=== PATIENT | female | born 1990 | race Two or more races ===

== ENCOUNTER 2017-03-26 22:08 | Observation (INO) | payer BC ==
[2017-03-26] MEDS ORDERED: Ketorolac 30 MG/ML SDV IM ONE (22:53)
--- NOTE | 2017-03-26 22:54 | EDM.PDOC ---
ED HPI GENERAL MEDICAL PROBLEM - General Chief Complaint: Abdominal Pain Stated Complaint: PELVIC PAIN Time Seen by Provider: 03/26/17 22:24 - History of Present Illness INITIAL COMMENTS - FREE TEXT/NARRATIVE: HISTORY AND PHYSICAL: History of present illness: Patient's age 26-year-old female who presents with concern of pelvic pain she has had this in the past intermittently but not quite as severe she has had an ultrasound was recently put on oral contraceptives for possible endometriosis. She denies fever chills nausea vomiting vaginal discharge denies history of STDs denies trauma she has had an ovarian cyst in the past. Review of systems: As per history of present illness and below otherwise all systems reviewed and negative. Past medical history: As per history of present illness and as reviewed below otherwise noncontributory. Surgical history: As per history of present illness and as reviewed below otherwise noncontributory. Social history: No reported history of drug or alcohol abuse. Family history: As per history of present illness and as reviewed below otherwise noncontributory. Physical exam: HEENT: Atraumatic, normocephalic, pupils reactive, negative for conjunctival pallor or scleral icterus, mucous membranes moist, throat clear, neck supple, nontender, trachea midline. Lungs: Clear to auscultation, breath sounds equal bilaterally, chest nontender. Heart: S1S2, regular, negative for clicks, rubs, or JVD. Abdomen: Soft, nondistended, mild lower abdominal pain nonlocalized no rebound no guarding Negative for masses or hepatosplenomegaly. Negative for costovertebral tenderness. Pelvis: Stable nontender. Genitourinary: Deferred. Rectal: Deferred. Extremities: Atraumatic, negative for cords or calf pain. Neurovascular unremarkable. Neuro: Awake, alert, oriented. Cranial nerves II through XII unremarkable. Cerebellum unremarkable. Motor and sensory unremarkable throughout. Exam nonfocal. Diagnostics: CBC CMP UA hCG pelvic ultrasound Therapeutics: Toradol 60 mg IM Impression: #1 intermittent pelvic pain etiology be determined Definitive disposition and diagnosis as appropriate pending reevaluation and review of above. hypogastric Pain Score (Numeric/FACES): 8 - Related Data Allergies Allergy/AdvReac Type Severity Reaction Status Date / Time Penicillins Allergy Rash Verified 03/27/17 03:08 Home Meds: Home Meds Control 03/26/17 [History] Past Medical History - Past Health History Medical/Surgical History: Denies Medical/Surgical History FACILITIES DIRECTOR History: Reports: Social & Family History - Family History Family Medical History: Noncontributory - Tobacco Use Smoking Status *Q: Never Smoker - Recreational Drug Use Recreational Drug Use: No ED ROS GENERAL - Review of Systems Review Of Systems: ROS reveals no pertinent complaints other than HPI. ED EXAM, GENERAL - Physical Exam Exam: See Below (See dictation) Course - Vital Signs Last Recorded V/S: Last Vital Signs Temp 36.3 C 03/27/17 03:57 Pulse 73 03/27/17 03:57 Resp 16 03/27/17 03:57 BP 101/64 03/27/17 03:57 Pulse Ox 99 03/27/17 03:57 - Orders/Labs/Meds Orders: Active Orders 24 hr Category Date Time Status Pelvis Non OB Ltd [US] Routine Exams 03/26/17 23:30 Taken Medication Orders Ibuprofen (Motrin) 800 mg PO Q8H EZEQUIEL Ondansetron HCl (Zofran Odt) 4 mg PO Q4H PRN PRN Reason: Nausea/Vomiting Oxycodone HCl (Oxycodone) 5 mg PO Q4H PRN PRN Reason: Pain Last Admin: 03/27/17 05:56 Dose: 5 mg Sodium Chloride (Saline Flush) 2.5 ml FLUSH ASDIRECTED PRN PRN Reason: Keep Vein Open Labs: Laboratory Tests 03/26/17 03/26/17 03/26/17 Range/Units 22:30 22:30 22:30 WBC 10.25 (4.0-11.0) K/uL RBC 4.03 L (4.30-5.90) M/uL Hgb 12.0 (12.0-16.0) g/dL Hct 35.7 L (36.0-46.0) % MCV 88.6 (80.0-98.0) fL MCH 29.8 (27.0-32.0) pg MCHC 33.6 (31.0-37.0) g/dL RDW Std Deviation 40.5 (28.0-62.0) fl RDW Coeff of Christian 13 (11.0-15.0) % Plt Count 226 (150-400) K/uL MPV 11.10 (7.40-12.00) fL Neut % (Auto) 38.0 L (48.0-80.0) % Lymph % (Auto) 49.0 H (16.0-40.0) % Green % (Auto) 8.2 (0.0-15.0) % Eos % (Auto) 3.8 (0.0-7.0) % Baso % (Auto) 1.0 (0.0-1.5) % Neut # (Auto) 3.9 (1.4-5.7) K/uL Lymph # (Auto) 5.0 H (0.6-2.4) K/uL Green # (Auto) 0.8 (0.0-0.8) K/uL Eos # (Auto) 0.4 (0.0-0.7) K/uL Baso # (Auto) 0.1 (0.0-0.1) K/uL Nucleated RBC % 0.0 /100WBC Nucleated RBCs # 0 K/uL Sodium (136-146) mmol/L Potassium (3.5-5.1) mmol/L Chloride (98-110) mmol/L Carbon Dioxide (21-31) mmol/L BUN (6.0-23.0) mg/dL Creatinine (0.6-1.5) mg/dL Est Cr Clr Drug Dosing mL/min Estimated GFR (MDRD) ml/min Glucose (60-110) mg/dL Calcium (8.8-10.8) mg/dL Total Bilirubin (0.1-1.5) mg/dL AST (5-40) IU/L ALT (8-54) IU/L Alkaline Phosphatase (40-150) Total Protein (6.0-8.0) g/dL Albumin (3.5-5.0) g/dL Globulin (2.0-3.5) g/dL Albumin/Globulin Ratio (1.3-2.8) Urine Color YELLOW Urine Appearance CLEAR Urine pH 6.0 (5.0-8.0) Ur Specific [place] <= 1.005 (1.001-1.035) Urine Protein NEGATIVE (NEGATIVE) mg/dL Urine Glucose (UA) NEGATIVE (NEGATIVE) mg/dL Urine Ketones NEGATIVE (NEGATIVE) mg/dL Urine Occult Blood NEGATIVE (NEGATIVE) Urine Nitrite NEGATIVE (NEGATIVE) Urine Bilirubin NEGATIVE (NEGATIVE) Urine Urobilinogen 0.2 (<2.0) EU/dL Ur Leukocyte Esterase NEGATIVE (NEGATIVE) Urine RBC 0-1 (0-2/HPF) Urine WBC 0-1 (0-5/HPF) Ur Epithelial Cells RARE (NONE-FEW) Urine Bacteria RARE (NEGATIVE) Urine HCG, Qual NEGATIVE (NEGATIVE) 03/26/17 Range/Units 22:30 WBC (4.0-11.0) K/uL RBC (4.30-5.90) M/uL Hgb (12.0-16.0) g/dL Hct (36.0-46.0) % MCV (80.0-98.0) fL MCH (27.0-32.0) pg MCHC (31.0-37.0) g/dL RDW Std Deviation (28.0-62.0) fl RDW Coeff of Christian (11.0-15.0) % Plt Count (150-400) K/uL MPV (7.40-12.00) fL Neut % (Auto) (48.0-80.0) % Lymph % (Auto) (16.0-40.0) % Green % (Auto) (0.0-15.0) % Eos % (Auto) (0.0-7.0) % Baso % (Auto) (0.0-1.5) % Neut # (Auto) (1.4-5.7) K/uL Lymph # (Auto) (0.6-2.4) K/uL Green # (Auto) (0.0-0.8) K/uL Eos # (Auto) (0.0-0.7) K/uL Baso # (Auto) (0.0-0.1) K/uL Nucleated RBC % /100WBC Nucleated RBCs # K/uL Sodium 137 (136-146) mmol/L Potassium 4.1 (3.5-5.1) mmol/L Chloride 110 (98-110) mmol/L Carbon Dioxide 18 L (21-31) mmol/L BUN 13 (6.0-23.0) mg/dL Creatinine 0.6 (0.6-1.5) mg/dL Est Cr Clr Drug Dosing 115.47 mL/min Estimated GFR (MDRD) > 60.0 ml/min Glucose 97 (60-110) mg/dL Calcium 8.8 (8.8-10.8) mg/dL Total Bilirubin 0.2 (0.1-1.5) mg/dL AST 14 (5-40) IU/L ALT 14 (8-54) IU/L Alkaline Phosphatase 41 (40-150) Total Protein 6.8 (6.0-8.0) g/dL Albumin 3.9 (3.5-5.0) g/dL Globulin 2.9 (2.0-3.5) g/dL Albumin/Globulin Ratio 1.3 (1.3-2.8) Urine Color Urine Appearance Urine pH (5.0-8.0) Ur Specific Ter[place] (1.001-1.035) Urine Protein (NEGATIVE) mg/dL Urine Glucose (UA) (NEGATIVE) mg/dL Urine Ketones (NEGATIVE) mg/dL Urine Occult Blood (NEGATIVE) Urine Nitrite (NEGATIVE) Urine Bilirubin (NEGATIVE) Urine Urobilinogen (<2.0) EU/dL Ur Leukocyte Esterase (NEGATIVE) Urine RBC (0-2/HPF) Urine WBC (0-5/HPF) Ur Epithelial Cells (NONE-FEW) Urine Bacteria (NEGATIVE) Urine HCG, Qual (NEGATIVE) Meds: Medications Generic Name Dose Route Start Last Admin Trade Name Freq PRN Reason Stop Dose Admin Ibuprofen 800 mg 03/27/17 10:00 Motrin PO Q8H EZEQUIEL Ondansetron HCl 4 mg 03/27/17 01:57 Zofran Odt PO Q4H PRN Nausea/Vomiting Oxycodone HCl 5 mg 03/27/17 03:41 03/27/17 05:56 Oxycodone PO 5 mg Q4H PRN Administration Pain Sodium Chloride 2.5 ml 03/27/17 04:00 Saline Flush FLUSH ASDIRECTED PRN Keep Vein Open Discontinued Medications Generic Name Dose Route Start Last Admin Trade Name Freq PRN Reason Stop Dose Admin Hydromorphone HCl 0.5 mg 03/27/17 00:34 03/27/17 01:07 Dilaudid IVPUSH 03/27/17 00:35 Not Given ONETIME ONE Hydromorphone HCl 0.5 mg 03/27/17 00:56 03/27/17 00:58 Dilaudid IV 03/27/17 00:57 0.5 mg ONETIME ONE Administration Hydromorphone HCl Confirm 03/27/17 00:54 03/27/17 01:07 Dilaudid Administered 03/27/17 00:55 Not Given Dose 1 mg .ROUTE .STK-MED ONE Sodium Chloride 1,000 mls @ 999 mls/hr 03/27/17 00:34 03/27/17 00:59 Normal Saline IV 03/27/17 01:34 999 mls/hr STAT ONE Administration Ibuprofen 800 mg 03/27/17 01:56 03/27/17 02:13 Motrin PO 800 mg Q8H PRN Administration Pain Ketorolac Tromethamine 30 mg 03/26/17 22:53 03/26/17 23:05 Toradol IM 03/26/17 22:54 30 mg ONETIME ONE Administration Methylprednisolone Sodium Succinate 125 mg 03/26/17 23:39 03/27/17 01:01 Solu-Medrol IVPUSH 03/26/17 23:40 Not Given ONETIME ONE Oxycodone/Acetaminophen 2 tab 03/27/17 03:29 03/27/17 03:37 Percocet 325-5 Mg PO 03/27/17 03:30 2 tab ONETIME STA Administration Departure - Departure Time of Disposition: 06:21 Disposition: Refer to Observation Condition: Good Clinical Impression: Abdominal pain - Discharge Information - My Orders Last 24 Hours: My Active Orders 03/26/17 23:30 Pelvis Non OB Ltd [US] Routine - Assessment/Plan Last 24 Hours: My Active Orders 03/26/17 23:30 Pelvis Non OB Ltd [US] Routine
[2017-03-26 23:00] LABS: CHLORIDE,CL 110 mmol/L (98-110); SODIUM,NA 137 mmol/L (136-146)
[2017-03-26] MEDS ORDERED: methylPREDNISolone Sodium Succinate 125 MG/2 ML SDV IVPUSH ONE (23:39)
[2017-03-27] MEDS ORDERED: Sodium Chloride 0.9% 1,000 ML IV ONE (00:34)
[2017-03-27] MEDS ORDERED: HYDROmorphone 2 MG/ML Syringe IVPUSH ONE (00:34)
[2017-03-27] MEDS ORDERED: HYDROmorphone 1 MG/ML Syringe ONE (00:54)
[2017-03-27] MEDS ORDERED: HYDROmorphone 1 MG/ML Syringe IV ONE (00:56)
[2017-03-27] MEDS ORDERED: Ibuprofen 800 MG Tab PO PRN (01:56)
[2017-03-27] MEDS ORDERED: Ondansetron 4 MG Tab.DIS PO PRN (01:57)
[2017-03-27] MEDS ORDERED: Acetaminophen/oxyCODONE 325-5 MG Tab PO STA (03:29)
[2017-03-27] MEDS ORDERED: Sodium Chloride 0.9% 2.5 ML Syringe FLUSH PRN (04:00)
[2017-03-27] MEDS: oxyCODONE 5 MG Tab PO PRN ×2 (05:56→10:44)
[2017-03-27] MEDS ORDERED: Ibuprofen 800 MG Tab PO SCH (10:00)
--- NOTE | 2017-03-27 16:53 | HP ---
DATE OF : 1990 PRIMARY CARE PHYSICIAN: None PCP HISTORY: The patient is a 26-year-old Para 4, who was admitted via the ER yesterday for worsening lower abdominal pain. This patient had been seen in the office for an routine annual exam 5 days ago and had reported at the visit to her provider that she has had constant pelvic pain virtually everyday for the last 6 months which has increasingly worsened especially with her periods and with sex. She reports that the reason why she presented to the ER yesterday was because the pain within no known aggravating factor suddenly increased in intensity days prior and with no much relief despite her taking OTC pain medication. She describes the pain as a constant sharp located mainly suprapubic and radiating to her back. No vaginal bleeding or abnormal vaginal discharge. She denied associated nausea or vomiting. No urinary symptoms and denied constipation. In the office,on 03/22, she had a pelvic ultrasound, which showed a 2.4 left- sided hemorrhagic cyst, and she was also started on empirical treatment with extended cycle OCP for possible endometriosis diagnosis based on her symptoms. She is , with four children, all normal vaginal delivery, and had a laparoscopic bilateral tubal ligation in June of last year at [place].The patient had received IV Toradol and Dilaudid in the ER. GYNECOLOGICAL HISTORY: Irregular cycles, last menstrual period was on the 19 of February. Denies history STDs. PAST OBSTETRIC HISTORY: Four normal vaginal deliveries. REVIEW OF SYSTEMS: As above. PAST MEDICAL HISTORY: History of depression. SURGICAL HISTORY: Laparoscopic bilateral tubal ligation in 2016, Appendectomy in 2013, Cholecystectomy in 2013. SOCIAL HISTORY: Nonsmoker, denies use of recreational drugs or street drugs. 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 FAMILY HISTORY: Mother with diabetes and hypercholesteremia. Father is and has three healthy sisters and one brother. MEDICATIONS: Oral contraceptive. ALLERGIES: Penicillin. PHYSICAL EXAMINATION: GENERAL: Apart from a low affect, she looked comfortable, lying on bed. She was maintaining good eye contact and was alert and oriented. VITAL SIGNS: Temperature 36.5, RI: 78, BP 95/63, Oxygen saturation of 100% on room air with a respiratory rate of 18. CHEST: Clear to auscultation bilaterally. CARDIOVASCULAR: Heart sounds 1 and 2. No murmurs. ABDOMEN: Soft. Generalized tenderness on the lower abdominal region, mainly suprapubic with voluntary guarding, but no rebound tenderness. No renal angle tenderness elicited. EXTREMITIES: No edema. VAGINAL EXAMINATION: Normal external genitalia with no lesions or discoloration noted. Scanty amount of cheesy/creamy discharge on speculum with normal appearing cervix On bimanual examination there was generalized tenderness in both adnexae. No cervical motion tenderness.Uterus is normal size, mobile, anteverted, mildly tender. An Affirm swab was collected LABORATORY DATA: All her labs performed in the ER last night, CBC, CMP, amylase, and lipase were all normal. Urinalysis was negative with a negative urine HCG. She had a pelvic ultrasound, which showed normal uterus, endometrium and normal ovaries bilaterally, no adnexal masses with no significant free fluid in the cul-de-sac. The right ovary which could only be visualized transabdominally, was documented as not have enough vacular flow within it. I reviewed the images on the PACS system, and the area of the previously seen 2.4 cm hemorrhagic cyst five days ago looked like a collapsing or involving follicle. There was a trace amount of free fluid in the cul-de-sac, but otherwise, it was a normal pelvic ultrasound. ASSESSMENT AND PLAN: A 26-year-old patient with chronic lower abdominal/pelvic pain, The pain is not any different from her prior symptom but had worsened over the last 2 days. At this stage, the etiology of symptom is unknown and I have reviewed the possible diagnosis with her.I agree that it could very well be endometriosis as suspected or a ruptured ovarian cyst causing her recent exacerbation. I have explained to the patient that she will need to have a discussion on further management options/ evaluation with Dr Ohara, and this can be done in the Clinic. I reviewed her pelvic sonogram findings with her and explained that based on her symptoms and clinical findings, am not convinced that she has an unprovoked ovarian torsion. I will discharge with pain medications and have her brought back to the clinic for follow up. The patient verbalized understanding and accepted the plan. YANG / MILKA /[id number] PREM
--- NOTE | 2017-03-28 18:06 | US ---
EXAM DATE: 03/27/17 PATIENT'S AGE: 26 Patient: ALEYDA RIVAS Facility: [place], [place] Site . Site : 1990 Study: US Pelvis [id number] 11:33:03 PM Ordering Physician: Kehinde Neal Final Report: INDICATION: Pelvic pain TECHNIQUE: Ultrasound pelvis transabdominal and transvaginal. Endovaginal imaging was performed to better visualize the endometrium and ovaries. Real- time horton scale sonographic images with spectral and color Doppler imaging of the ovaries were obtained. COMPARISON: None FINDINGS: Uterus: 8 x 5 x 6.2 cm. Normal echotexture of the myometrium noted with no masses are seen. Endometrium: 16 mm. No sign of endometrial mass or fluid present. Right ovary: 2 x 1.7 x 2.2 cm. Color doppler flow not well demonstrated within the right ovary. Left ovary: 2.6 x 2.4 x 2.6 cm. Normal arterial and venous blood flow seen in the left ovary. Cul-de-sac: No significant ascites noted. IMPRESSION: 1. Color Doppler flow not well demonstrated within the right ovary. Ovarian torsion cannot be excluded and clinical correlation and followup is recommended. A copy of this report was faxed to Dr. Busby at approximately 11:45 PM. Dictated by William Lo MD @ 03/26/2017 11:45:32 PM Dictated by: William Lo MD @ 03/26/2017 23:45:43 (Electronic Signature) Report Signed by Proxy. PREM
== END 2017-03-27 11:35 | disposition home or self-care (01) ==
LOC: MW.ED 22:08 → MW.MS 03-27 00:34
PROVIDERS: ADMIT Obstetrics & Gynecology; ATTEND Obstetrics & Gynecology
DX: R10.30 Lower abdominal pain, unspecified (principal); Z90.49 Acquired absence of other specified parts of digestive tract; Z88.0 Allergy status to penicillin; Z98.51 Tubal ligation status
CPT/HCPCS: 76857; 80053; 81001; 81025; 85025; 87480; 87510; 87660; 96361; 96372; 96374; 99285; A9270; G0378; J1170; J1885; J7040; 99284

== ENCOUNTER 2017-04-18 09:09 | Day surgery (SDC) | payer BC ==
[~2017-04-18 09:09] MED LIST: Bupivacaine 0.25% 10 ML SDV ONE; Lactated Ringers 1,000 ML IV SCH; Sodium Chloride 0.9% 10 ML Syringe FLUSH PRN; Sodium Chloride 0.9% 2.5 ML Syringe FLUSH PRN
--- NOTE | 2017-04-18 10:16 | PCM.PREANE ---
Preanesthetic Assessment - Anesthesia/Transfusion/Family Hx Anesthesia History: Prior Anesthesia Without Reaction Family History of Anesthesia Reaction: No Transfusion History: No Prior Transfusion(s) - Review of Systems General: No Symptoms Pulmonary: No Symptoms Cardiovascular: No Symptoms Gastrointestinal: No Symptoms Neurological: No Symptoms Other: Reports: None - Physical Assessment NPO Status Date: 04/17/17 NPO Status Time: 20:30 O2 Sat by Pulse Oximetry: 100 Respiratory Rate: 14 Vital Signs: Last Vital Signs Temp 36.7 C 04/18/17 10:07 Pulse 79 04/18/17 10:07 Resp 14 04/18/17 10:07 BP 117/77 04/18/17 10:07 Pulse Ox 100 04/18/17 10:07 Height: 1.59 m Weight: 70.76 kg ASA Class: 1 ROM/Head Extension: Full Lungs: Clear to Auscultation, Normal Respiratory Effort Cardiovascular: Regular Rate, Regular Rhythm - Lab Values: Laboratory Last Values WBC 7.29 K/uL (4.0-11.0) 04/18/17 09:50 RBC 4.36 M/uL (4.30-5.90) 04/18/17 09:50 Hgb 12.8 g/dL (12.0-16.0) 04/18/17 09:50 Hct 38.9 % (36.0-46.0) 04/18/17 09:50 MCV 89.2 fL (80.0-98.0) 04/18/17 09:50 MCH 29.4 pg (27.0-32.0) 04/18/17 09:50 MCHC 32.9 g/dL (31.0-37.0) 04/18/17 09:50 RDW Std Deviation 40.0 fl (28.0-62.0) 04/18/17 09:50 RDW Coeff of Christian 13 % (11.0-15.0) 04/18/17 09:50 Plt Count 227 K/uL (150-400) 04/18/17 09:50 MPV 11.60 fL (7.40-12.00) 04/18/17 09:50 Nucleated RBC % 0.0 /100WBC 04/18/17 09:50 Nucleated RBCs # 0 K/uL 04/18/17 09:50 - Allergies Allergies/Adverse Reactions: Allergies Allergy/AdvReac Type Severity Reaction Status Date / Time Penicillins Allergy Rash Verified 04/14/17 07:54 - Anesthesia Plan Pre-Op Medication Ordered: None - Acknowledgements Anesthesia Type Planned: General Anesthesia Pt an Appropriate Candidate for the Planned Anesthesia: Yes Alternatives and Risks of Anesthesia Discussed w Pt/Guardian: Yes Pt/Guardian Understands and Agrees with Anesthesia Plan: Yes PreAnesthesia Questionnaire - Past Health History Medical/Surgical History: Denies Medical/Surgical History HEENT History: Reports: None Gastrointestinal History: Reports: Other (See Below) Other Gastrointestinal History: occasional heartburn Genitourinary History: Reports: None BIRD KEEPER History: Reports: Musculoskeletal History: Reports: Fracture, Other (See Below) Neurological History: Reports: None Psychiatric History: Reports: None Endocrine/Metabolic History: Reports: None Hematologic History: Reports: None Immunologic History: Reports: None Oncologic (Cancer) History: Reports: None Dermatologic History: Reports: None - Infectious Disease History Infectious Disease History: Reports: Chicken Pox - Past Surgical History Head Surgeries/Procedures: Reports: None HEENT Surgical History: Reports: Oral Surgery GI Surgical History: Reports: Appendectomy, Cholecystectomy Female Surgical History: Reports: Tubal Ligation Musculoskeletal Surgical History: Reports: Other (See Below) Other Musculoskeletal Surgeries/Procedures:: clavicle fracture - SUBSTANCE USE Smoking Status *Q: Former Smoker Tobacco Use Within Last Twelve Months:  Second Hand Smoke Exposure: No Recreational Drug Use History: No - HOME MEDS Home Medications: Home Meds l-Norgest/E.estradion-E.estrad [Seasonique 0.15-0.03-0.01] 1 tab PO ASDIRECTED 04/14/17 [History] - CURRENT (IN HOUSE) MEDS Current Meds: Current Medications Lactated Ringer's (Ringers, Lactated) 1,000 mls @ 125 mls/hr IV ASDIRECTED [facility] Last Admin: 04/18/17 10:07 Dose: 125 mls/hr Sodium Chloride (Saline Flush) 10 ml FLUSH ASDIRECTED PRN PRN Reason: Keep Vein Open Sodium Chloride (Saline Flush) 2.5 ml FLUSH ASDIRECTED PRN PRN Reason: Keep Vein Open Discontinued Medications Bupivacaine HCl (Sensorcaine-Mpf 0.25%) Confirm Administered Dose 30 ml .ROUTE .STK-MED ONE Stop: 04/18/17 07:33
[2017-04-18] MEDS ORDERED: Lidocaine 2% 5 ML SDV ONE (10:33)
[2017-04-18] MEDS ORDERED: fentaNYL 250 MCG/5 ML SDV ONE (10:34)
[2017-04-18] MEDS ORDERED: Propofol 200 MG/20 ML SDV ONE (10:34)
[2017-04-18] MEDS ORDERED: Midazolam 1 MG/ML 2 ML SDV ONE (10:34)
[2017-04-18] MEDS ORDERED: Ondansetron 4 MG/2 ML SDV ONE (10:38)
[2017-04-18] MEDS ORDERED: Ketorolac 30 MG/ML SDV ONE (10:38)
[2017-04-18] MEDS ORDERED: Rocuronium 10 MG/ML 10 ML Syringe ONE (10:41)
[2017-04-18] MEDS ORDERED: Glycopyrrolate 0.2 MG/ML SDV ONE (10:41)
[2017-04-18] MEDS ORDERED: Neostigmine Methylsulfate 1 MG/ML 5 ML Syringe ONE (10:41)
[2017-04-18] MEDS ORDERED: Acetaminophen/HYDROcodone 325-5 MG Tab PO PRN (13:08)
[2017-04-18] MEDS: fentaNYL 100 MCG/2 ML SDV IVPUSH PRN ×2 (13:19→13:28)
--- NOTE | 2017-04-18 13:40 | PCM.POSTAN ---
POST ANESTHESIA ASSESSMENT - MENTAL STATUS Mental Status: Alert, Oriented - RESPIRATORY Respiratory Status: Respiratory Rate WNL, Airway Patent, O2 Saturation Stable - CARDIOVASCULAR CV Status: Pulse Rate WNL, Blood Pressure Stable - GASTROINTESTINAL GI Status: No Symptoms - POST OP HYDRATION Hydration Status: Adequate & Stable
--- NOTE | 2017-04-18 14:14 | PCM48HPAN ---
Post Anesthesia Note - EVALUATION WITHIN 48HRS OF ANESTHETIC Vital Signs in Normal Range: Yes Patient Participated in Evaluation: Yes Respiratory Function Stable: Yes Airway Patent: Yes Cardiovascular Function Stable: Yes Hydration Status Stable: Yes Pain Control Satisfactory: Yes Nausea and Vomiting Control Satisfactory: Yes Mental Status Recovered: Yes Resp Rate: 14 - COMMENTS/OBSERVATIONS Free Text/Narrative:: No apparent anesthesia complications.
--- NOTE | 2017-04-19 10:29 | OR ---
SURGEON: STEPHANIE WOLF DATE OF PROCEDURE: 04/18/2017 PROCEDURE:Diagnostic laparoscopy. PREOPERATIVE DIAGNOSIS: 26yo P4 with chronic pelvic pain. POSTOPERATIVE DIAGNOSIS: Chronic pelvic pain, IV FLUID: 1100. ESTIMATED BLOOD LOSS: 5 mL. URINE OUTPUT: Minimal. COMPLICATIONS: None. FINDINGS: EUA:Normal sized anteverted uterus. Laparoscopy showed :Normal uterus, ovaries, and tubes No abnormalities identified. BRIEF HISTORY ABOUT THE PATIENT: She is a 26-year-old, para 4, who had a bilateral tubal ligation done last year. She was complaining of irregular periods once every 2 months. She also had pelvic pain, which she was having every day. She had an ultrasound done, which was normal. CT scan was done and was also normal. The patient denied any urinary or bowel symptoms. .The patient was placed on OCP, but pain was not resolved. As a result, the patient was consented for diagnostic laparoscopy. DESCRIPTION OF PROCEDURE: The patient was taken to the operating room where general anesthesia was performed without difficulty. The patient was placed in dorsal lithotomy position with Emanuel stirrups. The patient was prepared and draped in the usual sterile fashion. Attention was then paid to the vagina, where a bivalve speculum was placed to expose the cervix. An Allis clamp was used to grasp the anterior lip of the cervix. The uterine manipulator was then inserted into the cervix. Then, attention was paid to the abdomen. A supraumbilical incision was made, after Marcaine was injected in the subumbilical fold. With direct entry, the trocar was placed in with the laparoscope, and entry was confirmed by low pressure. The pneumoperitoneum was then inflated to 15 mmHg. Then, attention was paid to the left lower quadrant. An incision was then made also in the left lower quadrant two fingerbreath medial and above the anterior superior iliac spine. The scalpel was used to make a skin incision. The trocar was then placed in. Sequentially, the anterior cul-de-sac was inspected, followed by the right and left round ligaments were inspected all the way to the pelvic side wall. On the right and left round ligaments, no lesion was found. The right and left ovary were inspected. The ovarian fossa was also inspected. In the posterior cul-de-sac, no lesion was found. The liver appeared normal and adhesions were very minimal. As a result of this, the procedure was ended. The gas was released out of the abdomen through the trocars. The trocars were removed. All instrument and pad counts were correct x2. The incision was closed with 4-0 Monocryl and Steri-Strip was placed with a bandage. Then, the uterine manipulator was also removed. The patient tolerated the procedure well and was taken to the recovery room in stable condition. DIANE JARQUIN /[id number] MTDD
== END 2017-04-18 14:45 | disposition home or self-care (01) ==
LOC: MW.SDS 09:09
PROVIDERS: ATTEND Obstetrics & Gynecology
DX: R10.2 Pelvic and perineal pain (principal); G89.29 Other chronic pain; Z98.51 Tubal ligation status; Z87.891 Personal history of nicotine dependence; Z88.0 Allergy status to penicillin
CPT/HCPCS: 36415; 49320; 84703; 85027; 86850; 86900; 86901; A9270; J1885; J2250; J2405; J3010; J7120; 00840; J2704

== ENCOUNTER 2017-04-22 17:15 | Emergency (ER) | payer BC ==
[2017-04-22] MEDS ORDERED: Sodium Chloride 0.9% 1,000 ML IV ONE (17:56)
--- NOTE | 2017-04-22 17:59 | EDM.PDOC ---
ED HPI GENERAL MEDICAL PROBLEM - General Chief Complaint: COURT OPERATIONS CLERK Problem Stated Complaint: CHEST PAIN Time Seen by Provider: 04/22/17 17:53 - History of Present Illness INITIAL COMMENTS - FREE TEXT/NARRATIVE: HISTORY AND PHYSICAL: History of present illness: Patient is 26-year-old female was approximately 1 week status post laparoscopy which was exploratory for possible endometriosis who presents now with concern of vaginal bleeding and passage of some tissue. Patient also has concern of chest pain is vaguely described without associated shortness of breath nausea vomiting fever chills Review of systems: As per history of present illness and below otherwise all systems reviewed and negative. Past medical history: As per history of present illness and as reviewed below otherwise noncontributory. Surgical history: As per history of present illness and as reviewed below otherwise noncontributory. Social history: No reported history of drug or alcohol abuse. Family history: As per history of present illness and as reviewed below otherwise noncontributory. Physical exam: HEENT: Atraumatic, normocephalic, pupils reactive, negative for conjunctival pallor or scleral icterus, mucous membranes moist, throat clear, neck supple, nontender, trachea midline. Lungs: Clear to auscultation, breath sounds equal bilaterally, chest nontender. Heart: S1S2, regular, negative for clicks, rubs, or JVD. Abdomen: Soft, nondistended, no localized tenderness. Negative for masses or hepatosplenomegaly. Negative for costovertebral tenderness. Pelvis: Stable nontender. Genitourinary: Deferred. Rectal: Deferred. Extremities: Atraumatic, negative for cords or calf pain. Neurovascular unremarkable. Neuro: Awake, alert, oriented. Cranial nerves II through XII unremarkable. Cerebellum unremarkable. Motor and sensory unremarkable throughout. Exam nonfocal. Diagnostics: CBC CMP PT/INR troponin d-dimer pelvic ultrasound chest x-ray EKG Therapeutics: Saline 1 L bolus Impression: #1 vaginal bleeding #2 observation 1 week status post laparoscopy #3 chest pain Definitive disposition and diagnosis as appropriate pending reevaluation and review of above. 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: Musculoskeletal History: Reports: Fracture, Other (See Below) Neurological History: Reports: None Psychiatric History: Reports: None Endocrine/Metabolic History: Reports: None Hematologic History: Reports: None Immunologic History: Reports: None Oncologic (Cancer) History: Reports: None Dermatologic History: Reports: None - Infectious Disease History Infectious Disease History: Reports: Chicken Pox - Past Surgical History Head Surgeries/Procedures: Reports: None HEENT Surgical History: Reports: Oral Surgery GI Surgical History: Reports: Appendectomy, Cholecystectomy Female Surgical History: Reports: Tubal Ligation Musculoskeletal Surgical History: Reports: Other (See Below) Other Musculoskeletal Surgeries/Procedures:: clavicle fracture Social & Family History - Family History Family Medical History: Noncontributory - Tobacco Use Smoking Status *Q: Former Smoker Years of Tobacco use: 9 Used Tobacco, but Quit: Yes Month/Year Tobacco Last Used: 02/2016 Second Hand Smoke Exposure: No - Caffeine Use Caffeine Use: Reports: None - Recreational Drug Use Recreational Drug Use: No ED ROS GENERAL - Review of Systems Review Of Systems: ROS reveals no pertinent complaints other than HPI. ED EXAM, GENERAL - Physical Exam Exam: See Below (See dictation) Course - Vital Signs Last Recorded V/S: Last Vital Signs Temp 36.6 C 04/22/17 18:07 Pulse 102 H 04/22/17 18:07 Resp 18 04/22/17 18:07 BP 144/98 H 04/22/17 18:07 Pulse Ox 99 04/22/17 18:07 - Orders/Labs/Meds Orders: Active Orders 24 hr Category Date Time Status EKG Documentation Completion [RC] STAT Care 04/22/17 18:00 Active Chest 1V Frontal [CR] Stat Exams 04/22/17 17:54 Taken Pelvis Non OB Comp [US] Stat Exams 04/22/17 17:59 Taken Sodium Chloride 0.9% [Normal Saline] 1,000 ml Med 04/22/17 17:56 Active IV STAT Medication Orders Sodium Chloride (Normal Saline) 1,000 mls @ 999 mls/hr IV STAT ONE Stop: 04/22/17 18:56 Last Admin: 04/22/17 18:11 Dose: 999 mls/hr Labs: Laboratory Tests 04/22/17 04/22/17 04/22/17 Range/Units 18:03 18:03 18:03 WBC 11.86 H (4.0-11.0) K/uL RBC 4.59 (4.30-5.90) M/uL Hgb 13.6 (12.0-16.0) g/dL Hct 40.7 (36.0-46.0) % MCV 88.7 (80.0-98.0) fL MCH 29.6 (27.0-32.0) pg MCHC 33.4 (31.0-37.0) g/dL RDW Std Deviation 39.8 (28.0-62.0) fl RDW Coeff of Christian 12 (11.0-15.0) % Plt Count 276 (150-400) K/uL MPV 11.00 (7.40-12.00) fL Neut % (Auto) 62.8 (48.0-80.0) % Lymph % (Auto) 27.7 (16.0-40.0) % Harney % (Auto) 6.5 (0.0-15.0) % Eos % (Auto) 2.4 (0.0-7.0) % Baso % (Auto) 0.6 (0.0-1.5) % Neut # (Auto) 7.4 H (1.4-5.7) K/uL Lymph # (Auto) 3.3 H (0.6-2.4) K/uL Harney # (Auto) 0.8 (0.0-0.8) K/uL Eos # (Auto) 0.3 (0.0-0.7) K/uL Baso # (Auto) 0.1 (0.0-0.1) K/uL Nucleated RBC % 0.0 /100WBC Nucleated RBCs # 0 K/uL INR 0.93 D-Dimer, Quantitative (0.0-0.52) mg/LFEU Sodium 137 (136-145) mmol/L Potassium 4.1 (3.5-5.1) mmol/L Chloride 102 (98-107) mmol/L Carbon Dioxide 25.9 (21.0-32.0) mmol/L BUN 8 (7.0-18.0) mg/dL Creatinine 0.7 (0.6-1.0) mg/dL Est Cr Clr Drug Dosing 98.98 mL/min Estimated GFR (MDRD) > 60.0 ml/min Glucose 90 (74-106) mg/dL Calcium 8.9 (8.5-10.1) mg/dL Total Bilirubin 0.1 L (0.2-1.0) mg/dL AST 14 L (15-37) IU/L ALT 57 (14-63) IU/L Alkaline Phosphatase 47 (46-116) U/L Troponin I < 0.050 (0.000-0.056) ng/mL Total Protein 7.9 (6.4-8.2) g/dL Albumin 3.5 (3.4-5.0) g/dL Globulin 4.4 H (2.0-3.5) g/dL Albumin/Globulin Ratio 0.8 L (1.3-2.8) HCG, Qual (NEG) 04/22/17 04/22/17 Range/Units 18:03 18:03 WBC (4.0-11.0) K/uL RBC (4.30-5.90) M/uL Hgb (12.0-16.0) g/dL Hct (36.0-46.0) % MCV (80.0-98.0) fL MCH (27.0-32.0) pg MCHC (31.0-37.0) g/dL RDW Std Deviation (28.0-62.0) fl RDW Coeff of Christian (11.0-15.0) % Plt Count (150-400) K/uL MPV (7.40-12.00) fL Neut % (Auto) (48.0-80.0) % Lymph % (Auto) (16.0-40.0) % Harney % (Auto) (0.0-15.0) % Eos % (Auto) (0.0-7.0) % Baso % (Auto) (0.0-1.5) % Neut # (Auto) (1.4-5.7) K/uL Lymph # (Auto) (0.6-2.4) K/uL Harney # (Auto) (0.0-0.8) K/uL Eos # (Auto) (0.0-0.7) K/uL Baso # (Auto) (0.0-0.1) K/uL Nucleated RBC % /100WBC Nucleated RBCs # K/uL INR D-Dimer, Quantitative 0.50 (0.0-0.52) mg/LFEU Sodium (136-145) mmol/L Potassium (3.5-5.1) mmol/L Chloride (98-107) mmol/L Carbon Dioxide (21.0-32.0) mmol/L BUN (7.0-18.0) mg/dL Creatinine (0.6-1.0) mg/dL Est Cr Clr Drug Dosing mL/min Estimated GFR (MDRD) ml/min Glucose (74-106) mg/dL Calcium (8.5-10.1) mg/dL Total Bilirubin (0.2-1.0) mg/dL AST (15-37) IU/L ALT (14-63) IU/L Alkaline Phosphatase (46-116) U/L Troponin I (0.000-0.056) ng/mL Total Protein (6.4-8.2) g/dL Albumin (3.4-5.0) g/dL Globulin (2.0-3.5) g/dL Albumin/Globulin Ratio (1.3-2.8) HCG, Qual NEGATIVE (NEG) Meds: Medications Generic Name Dose Route Start Last Admin Trade Name Freq PRN Reason Stop Dose Admin Sodium Chloride 1,000 mls @ 999 mls/hr 04/22/17 17:56 04/22/17 18:11 Normal Saline IV 04/22/17 18:56 999 mls/hr STAT ONE Administration Departure - Departure Time of Disposition: 18:51 Disposition: Home, Self-Care 01 Condition: Good Clinical Impression: Vaginal bleeding, Atypical chest pain - Discharge Information Referrals: PCP,None [Primary Care Provider] - Forms: ED Department Discharge Additional Instructions: The following information is given to patients seen in the emergency department who are being discharged to home. This information is to outline your options for follow-up care. We provide all patients seen in our emergency department with a follow-up referral. The need for follow-up, as well as the timing and circumstances, are variable depending upon the specifics of your emergency department visit. If you don't have a primary care physician on staff, we will provide you with a referral. We always advise you to contact your personal physician following an emergency department visit to inform them of the circumstance of the visit and for follow-up with them and/or the need for any referrals to a consulting specialist. The emergency department will also refer you to a specialist when appropriate. This referral assures that you have the opportunity for followup care with a specialist. All of these measure are taken in an effort to provide you with optimal care, which includes your followup. Under all circumstances we always encourage you to contact your private physician who remains a resource for coordinating your care. When calling for followup care, please make the office aware that this follow-up is from your recent emergency room visit. If for any reason you are refused follow-up, please contact the [facility] emergency department at and asked to speak to the emergency department charge nurse. Follow-up with COURT OPERATIONS CLERK he called to schedule appointment continue to monitor vaginal bleeding Motrin/Tylenol as directed return as needed as discussed - My Orders Last 24 Hours: My Active Orders 04/22/17 17:54 Chest 1V Frontal [CR] Stat 04/22/17 17:56 Sodium Chloride 0.9% [Normal Saline] 1,000 ml IV STAT 04/22/17 17:59 Pelvis Non OB Comp [US] Stat 04/22/17 18:00 EKG Documentation Completion [RC] STAT - Assessment/Plan Last 24 Hours: My Active Orders 04/22/17 17:54 Chest 1V Frontal [CR] Stat 04/22/17 17:56 Sodium Chloride 0.9% [Normal Saline] 1,000 ml IV STAT 04/22/17 17:59 Pelvis Non OB Comp [US] Stat 04/22/17 18:00 EKG Documentation Completion [RC] STAT
[2017-04-22 18:29] LABS: CHLORIDE,CL 102 mmol/L (98-107); SODIUM,NA 137 mmol/L (136-145)
--- NOTE | 2017-04-25 11:30 | US ---
EXAM DATE: 04/22/17 PATIENT'S AGE: 26 Patient: ALEYDA RIVAS Facility: [place], [place] Site . Site : 1990 Study: US Pelvis [id number] 6:44:21 PM Ordering Physician: Kehinde Neal Final Report: INDICATION: PAIN AND BLEEDING PELVIC ULTRASOUND Technique: Multiple transvaginal sonographic images of the pelvis were performed. Findings: The uterus is normal in size and contour, measuring 8.2 x 4.0 x 6.3 cm. No uterine masses are identified. The endometrium measures 6 mm in thickness and appears homogeneous. The ovaries appear normal bilaterally. Color and spectral Doppler blood flow is noted in both ovaries. No adnexal masses are evident. No significant free pelvic fluid is identified. IMPRESSION: Normal pelvic ultrasound. ROSALBA GUTIÉRREZ MD [employer] Dictated by Chad Gutiérrez MD @ 04/22/2017 6:57:21 PM Dictated by: Chad Gutiérrez MD @ 04/22/2017 19:00:02 (Electronic Signature) Report Signed by Proxy. HEL[facility] HAYES HOSPITALGisela
--- NOTE | 2017-04-25 11:37 | CR ---
EXAM DATE: 04/22/17 PATIENT'S AGE: 26 Patient: ALEYDA RIVAS Facility: [place], [place] Site . Site : 1990 Study: XRay Chest [id number] 6:46:40 PM Ordering Physician: Kehinde Neal Final Report: INDICATION: Chest pain. COMPARISON: None. TECHNIQUE: PA chest. FINDINGS: Normal size cardiac silhouette. Clear lung kaplan without evidence of acute pneumonic infiltrates or CHF. No pneumothorax or pleural effusion. Internal fixation of the fracture of the right clavicle. IMPRESSION: No acute pathology. Dictated by Lydia Murdock MD @ Apr 22 2017 6:54PM (Electronic Signature) Report Signed by Proxy. PREM
== END 2017-04-22 20:20 | disposition home or self-care (01) ==
LOC: MW.ED 17:15
DX: R07.89 Other chest pain (principal); N93.9 Abnormal uterine and vaginal bleeding, unspecified; Z88.0 Allergy status to penicillin; Z87.891 Personal history of nicotine dependence
CPT/HCPCS: 36415; 71045; 76856; 80053; 84484; 84703; 85025; 85379; 85610; 96360; 99285; J7040; 99284

== ENCOUNTER 2017-05-26 19:05 | Emergency (ER) | payer BC ==
[2017-05-26] MEDS ORDERED: methylPREDNISolone Sodium Succinate 125 MG/2 ML SDV IM ONE (19:23)
[2017-05-26] MEDS ORDERED: diphenhydrAMINE 50 MG/ML SDV IM ONE (19:23)
--- NOTE | 2017-05-26 19:28 | EDM.PDOC ---
ED HPI GENERAL MEDICAL PROBLEM - General Chief Complaint: Skin Complaint Stated Complaint: RASH Time Seen by Provider: 05/26/17 19:19 Source of Information: Reports: Patient History Limitations: Reports: No Limitations - History of Present Illness INITIAL COMMENTS - FREE TEXT/NARRATIVE: HISTORY AND PHYSICAL: History of present illness: Patient is a 27-year-old female who presents to the emergency room today with complaints of rash and hives throughout her body. This started at approximately noon today. She states she did take some liquid Benadryl which did not help alleviate her symptoms. She denies any new medications, exposures or change in household products. C/o urticaria associated with the rash. Review of systems: As per history of present illness and below otherwise all systems reviewed and negative. Past medical history: As per history of present illness and as reviewed below otherwise noncontributory. Surgical history: As per history of present illness and as reviewed below otherwise noncontributory. Social history: No reported history of drug or alcohol abuse. Family history: As per history of present illness and as reviewed below otherwise noncontributory. Physical exam: General: Developed and well-nourished 27-year-old female. Alert and oriented. Nontoxic appearing and in no acute distress. HEENT: Atraumatic, normocephalic, pupils equal and reactive bilaterally, negative for conjunctival pallor or scleral icterus, mucous membranes moist, throat clear, neck supple, nontender, trachea midline. No drooling or trismus noted. No meningeal signs Lungs: Clear to auscultation, breath sounds equal bilaterally, chest nontender. Heart: S1S2, regular rate and rhythm without overt murmur Abdomen: Soft, nondistended, nontender. Negative for masses or hepatosplenomegaly. Negative for costovertebral tenderness. Pelvis: Stable nontender. Genitourinary: Deferred. Rectal: Deferred. Skin: Welt like rash/hives to lower extremities, trunk and arms bilaterally. Extremities: Atraumatic, negative for cords or calf pain. Neurovascular unremarkable. Neuro: Awake, alert, oriented. Cranial nerves II through XII unremarkable. Cerebellum unremarkable. Motor and sensory unremarkable throughout. Exam nonfocal. Notes: We'll give the patient and Medrol and Benadryl IM while here. Script for Medrol Dosepak. Patient did complain of some non-specific arthralgias, which I encouraged her to follow up with her primary care provider for further workup as this could be a multitude of things and not related to her hives today. She voices understanding and is agreeable to plan of care. She denies any further questions at this time. Diagnostics: [] Therapeutics: Benadryl, Solumedrol Impression: Rash Plan: 1. Please take the prescribed Medrol dosepak as directed. 2. Please take Benadryl (may get non-drowsy formula) AND Zantac (together) and take as directed and routinely over the next 48-72 hours. 3. Avoid hot showers as this can cause further irritation. Cool rags may provide relief/comfort. 4. Follow up with your primary care provider in the next 1-2 days. Return to the ED as needed and as discussed. Definitive disposition and diagnosis as appropriate pending reevaluation and review of above. 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: , Other (See Below) Other OB/BYN History: laparoscopy Musculoskeletal History: Reports: Fracture, Other (See Below) Neurological History: Reports: None Psychiatric History: Reports: None Endocrine/Metabolic History: Reports: None Hematologic History: Reports: None Immunologic History: Reports: None Oncologic (Cancer) History: Reports: None Dermatologic History: Reports: None - Infectious Disease History Infectious Disease History: Reports: Chicken Pox - Past Surgical History Head Surgeries/Procedures: Reports: None HEENT Surgical History: Reports: Oral Surgery GI Surgical History: Reports: Appendectomy, Cholecystectomy Female Surgical History: Reports: Tubal Ligation Musculoskeletal Surgical History: Reports: Other (See Below) Other Musculoskeletal Surgeries/Procedures:: clavicle fracture Social & Family History - Family History Family Medical History: Noncontributory - Tobacco Use Smoking Status *Q: Never Smoker Years of Tobacco use: 9 Used Tobacco, but Quit: Yes Month/Year Tobacco Last Used: 02/2016 Second Hand Smoke Exposure: No - Caffeine Use Caffeine Use: Reports: None - Recreational Drug Use Recreational Drug Use: No ED ROS GENERAL - Review of Systems Review Of Systems: ROS reveals no pertinent complaints other than HPI. ED EXAM, SKIN/RASH Exam: See Below (See dictation) Course - Vital Signs Last Recorded V/S: Last Vital Signs Temp 97.3 F 05/26/17 19:16 Pulse 104 H 05/26/17 19:16 Resp 20 05/26/17 19:16 BP 120/76 05/26/17 19:16 Pulse Ox 100 05/26/17 19:16 - Orders/Labs/Meds Meds: Medications Discontinued Medications Generic Name Dose Route Start Last Admin Trade Name Freq PRN Reason Stop Dose Admin Diphenhydramine HCl 50 mg 05/26/17 19:23 05/26/17 19:31 Benadryl IM 05/26/17 19:24 50 mg ONETIME ONE Administration Methylprednisolone Sodium Succinate 125 mg 05/26/17 19:23 05/26/17 19:30 Solu-Medrol IM 05/26/17 19:24 125 mg ONETIME ONE Administration Departure - Departure Time of Disposition: 19:28 Disposition: Home, Self-Care 01 Clinical Impression: Rash - Discharge Information Instructions: Haroon, [id number] Referrals: Kassidy Moffett MD [Primary Care Provider] - Forms: ED Department Discharge Additional Instructions: The following information is given to patients seen in the emergency department who are being discharged to home. This information is to outline your options for follow-up care. We provide all patients seen in our emergency department with a follow-up referral. The need for follow-up, as well as the timing and circumstances, are variable depending upon the specifics of your emergency department visit. If you don't have a primary care physician on staff, we will provide you with a referral. We always advise you to contact your personal physician following an emergency department visit to inform them of the circumstance of the visit and for follow-up with them and/or the need for any referrals to a consulting specialist. The emergency department will also refer you to a specialist when appropriate. This referral assures that you have the opportunity for follow-up care with a specialist. All of these measure are taken in an effort to provide you with optimal care, which includes your follow-up. Under all circumstances we always encourage you to contact your private physician who remains a resource for coordinating your care. When calling for follow-up care, please make the office aware that this follow-up is from your recent emergency room visit. If for any reason you are refused follow-up, please contact the [facility] Emergency Department at and asked to speak to the emergency department charge nurse. [facility] [address] [place] [id number] 1. Please take the prescribed Medrol dosepak as directed. 2. Please take Benadryl (may get non-drowsy formula) AND Zantac (together) and take as directed and routinely over the next 48-72 hours. 3. Avoid hot showers as this can cause further irritation. Cool rags may provide relief/comfort. 4. Follow up with your primary care provider in the next 1-2 days. Return to the ED as needed and as discussed.
[2017-05-26] MEDS ORDERED: Sodium Chloride 0.9% 1,000 ML IV ONE (20:15)
[2017-05-26 21:29] LABS: CHLORIDE,CL 105 mmol/L (98-107); SODIUM,NA 140 mmol/L (136-145)
== END 2017-05-26 21:43 | disposition home or self-care (01) ==
LOC: MW.ED 19:05
DX: R21 Rash and other nonspecific skin eruption (principal); Z88.0 Allergy status to penicillin; Z87.891 Personal history of nicotine dependence
CPT/HCPCS: 80053; 82150; 83690; 84703; 85025; 96360; 96372; 99283; J1200; J2930; J7040